=== PATIENT | female | born 1975 | race African-American/Black ===

== ENCOUNTER 2017-05-17 10:23 | Emergency (ER) | payer MEDICAID ==
[~2017-05-17] VITALS: Ht 160 cm; Wt 81.6 kg
[2017-05-17 10:31] VITALS: BP_SYST 117
[2017-05-17] MEDS ORDERED: PROCHLORPERAZINE EDISYLATE 10 MG/2 ML VIAL IM ONE (12:00)
[2017-05-17] MEDS ORDERED: DIPHENHYDRAMINE INJ 50 MG/ML VIAL IM ONE (12:00)
[2017-05-17 14:20] VITALS: BP_SYST 115
== END 2017-05-17 14:20 | disposition home or self-care (01) ==
LOC: SED 10:23
DX: R51 Headache (principal); B02.9 Zoster without complications
CPT/HCPCS: 70450; 96372; 99284; J0780; J1200

== ENCOUNTER 2018-08-17 16:22 | Emergency (ER) | payer MEDICAID ==
[~2018-08-17] VITALS: Ht 160 cm; Wt 83.5 kg
[2018-08-17 16:22] VITALS: BP_SYST 110
--- NOTE | 2018-08-17 16:22 | NUR ---
BROUGHT BACK TO BED #8 VIA WHEELCHAIR, PLACED IN BED AND TRIAGED. REPORT GIVEN TO BERNABE
--- NOTE | 2018-08-17 16:25 | NUR ---
Patient to ER bed 08 to gown for evaluation. Side rails up.
--- NOTE | 2018-08-17 16:35 | NUR ---
Dr. Davila @ bedside for examination.
--- NOTE | 2018-08-17 16:38 | NUR ---
XRAYS BEING DONE AT BEDSIDE.
--- NOTE | 2018-08-17 16:45 | NUR ---
Patient AOx4 and obeys commands. Patient stated injury to right foot that was twisted. Right foot now swollen and patient unable to bear weight. Patient stated pain level 10/10. No signs of acute distress noted.
[2018-08-17] MEDS ORDERED: IBUPROFEN 800 MG TABLET PO ONE (17:15)
[2018-08-17 17:35] VITALS: BP_SYST 110
--- NOTE | 2018-08-17 17:35 | NUR ---
Patient given written and verbal discharge instructions and verbalizes understanding. ER MD discussed with patient the results and treatment provided. Patient in stable condition. ID arm band removed. Rx of motrin given. Patient educated on pain management and to follow up with PMD. Pain Scale 5/10 Opportunity for questions provided and answered. Medication side effect fact sheet provided.
== END 2018-08-17 17:35 | disposition home or self-care (01) ==
LOC: SED 16:22
DX: S92.351A Displaced fracture of fifth metatarsal bone, right foot, initial encounter for closed fracture (principal); W18.40XA Slipping, tripping and stumbling without falling, unspecified, initial encounter; Y93.01 Activity, walking, marching and hiking; Y92.89 Other specified places as the place of occurrence of the external cause; Y99.8 Other external cause status
CPT/HCPCS: 99283

== ENCOUNTER 2019-04-02 23:14 | Emergency (ER) | payer MEDICAID ==
[~2019-04-02] VITALS: Ht 165.1 cm; Wt 81.6 kg
[2019-04-02 23:17] VITALS: BP_SYST 129
--- NOTE | 2019-04-02 23:17 | NUR ---
Patient to ER bed 4 to gown for evaluation. Side rails up. Report given to Flor LACY by Mary LACY.
--- NOTE | 2019-04-02 23:25 | NUR ---
ER at bedside examining patient.
[2019-04-02] MEDS ORDERED: ACETAMINOPHEN 325 MG TABLET PO ONE (23:30)
[2019-04-03 01:06] VITALS: BP_SYST 122
--- NOTE | 2019-04-03 01:06 | NUR ---
Patient given written and verbal discharge instructions and verbalizes understanding. ER MD discussed with patient the results and treatment provided. Patient in stable condition. ID arm band removed. Rx of Angie Mensah and Sonia given. Patient educated on pain management and to follow up with PMD. Pain Scale 0/10. Opportunity for questions provided and answered. Medication side effect fact sheet provided.
== END 2019-04-03 01:06 | disposition home or self-care (01) ==
LOC: SED 23:14
DX: B34.9 Viral infection, unspecified (principal); R50.9 Fever, unspecified
CPT/HCPCS: 36415; 86710; 99283

== ENCOUNTER 2019-04-18 22:06 | Emergency (ER) | payer MEDICAID ==
[~2019-04-18] VITALS: Ht 160 cm; Wt 81.6 kg
[2019-04-18 22:57] VITALS: BP_SYST 108
--- NOTE | 2019-04-18 23:15 | NUR ---
Pt ambulatory to bed 3 for evaluation
--- NOTE | 2019-04-18 23:15 | NUR ---
Pt c/o fever, cough, chills, body aches x 2 weeks with temp of "110" since 2144 today.
--- NOTE | 2019-04-18 23:30 | NUR ---
Temp recheck 97.9 temporal.
--- NOTE | 2019-04-19 00:14 | NUR ---
Dr. Gastelum at bedside.
[2019-04-19 00:38] VITALS: BP_SYST 112
--- NOTE | 2019-04-19 00:38 | NUR ---
Patient given written and verbal discharge instructions and verbalizes understanding. ER MD discussed with patient the results and treatment provided. Patient in stable condition. ID arm band removed. Rx of Tamiflu, Motrin, Promethazine DM given. Patient educated on pain management and to follow up with PMD. Pain Scale 2/10. Opportunity for questions provided and answered. Medication side effect fact sheet provided.
== END 2019-04-19 00:38 | disposition home or self-care (01) ==
LOC: SED 22:06
DX: J10.1 Influenza due to other identified influenza virus with other respiratory manifestations (principal)
CPT/HCPCS: 36415; 86710; 99283

== ENCOUNTER 2019-05-22 20:57 | Emergency (ER) | payer MEDICAID ==
[~2019-05-22] VITALS: Ht 162.6 cm; Wt 79.4 kg
[2019-05-22 21:00] VITALS: BP_SYST 103
--- NOTE | 2019-05-22 21:00 | NUR ---
Patient triaged and placed in waiting room. VSS and patient appears in no acute distress at this time. Accompanied by DAUGTHER, awaiting available bed, and MD notified of need for MSE.
--- NOTE | 2019-05-22 23:07 | NUR ---
Patient to ER bed 8 to gown for evaluation. Side rails up. Report given to BRANDEN LACY.
--- NOTE | 2019-05-22 23:11 | NUR ---
Patient complains of cough and was seen by her PCP and was prescribed Tamiflu. Pt states her cough is still present and is now complaining of pain from her left shoulder radiating to left neck. Pt states she has been feeling nauseous and vomited numerous times. Pt denies diarrhea. Per patient she has "chills." No other injuries/complaints per patient or noted.
[2019-05-22] MEDS ORDERED: KETOROLAC TROMETHAMINE 30 MG VIAL IVP ONE (23:30)
[2019-05-22] MEDS ORDERED: NACL 0.9% 1,000 ML IV ONE (23:30)
[2019-05-22] MEDS ORDERED: ONDANSETRON HCL 4 MG/2 ML VIAL IVP ONE (23:30)
--- NOTE | 2019-05-23 | NUR ---
ER at bedside examining patient.
[2019-05-23 00:35] VITALS: BP_SYST 113
--- NOTE | 2019-05-23 00:35 | NUR ---
Patient given written and verbal discharge instructions and verbalizes understanding. ER MD discussed with patient the results and treatment provided. Patient in stable condition. ID arm band removed. IV catheter removed intact and dressing applied, no active bleeding. Rx of Motrin, Zofran, prednisone, cipro given. Patient educated on pain management and to follow up with PMD. Pain Scale 0/10. Opportunity for questions provided and answered. Medication side effect fact sheet provided.
== END 2019-05-23 00:35 | disposition home or self-care (01) ==
LOC: SED 20:57
DX: N39.0 Urinary tract infection, site not specified (principal); R05 Cough; R11.2 Nausea with vomiting, unspecified
CPT/HCPCS: 96361; 96374; 96375; 99283; J1885; J2405; J7030

== ENCOUNTER 2019-07-08 12:20 | Inpatient (IN) | payer MEDICAID ==
[~2019-07-08] VITALS: Ht 162.6 cm; Wt 75.7 kg
--- NOTE | 2019-07-08 12:20 | NUR ---
Placed in room 3. Placed on retail account executive, blood pressure machine and pulse oximeter. To gown for exam. Side rails up. Report given to BAMBI Coleman.
[2019-07-08 12:21] VITALS: BP_SYST 114
--- NOTE | 2019-07-08 12:21 | NUR ---
Patient presented to ER C/O abdominal pain. Patient A&Ox4, arrived ALS, afebrile, skin pink & warm, pain 8/10, denies N/V/D, tachycardia, patient placed on teletypesetter monitor and pulse-ox monitor upon arrival. Patient states abdominal pain started yesterday, rectal pain started today after bowel movement. Patient states she had a hospital admission in May 2019, diagnosed with lymphoma & HIV positive with chemo treatment initiated x1 week ago.
--- NOTE | 2019-07-08 12:25 | NUR ---
ALEKSANDAR Bertrand at bedside examining patient.
--- NOTE | 2019-07-08 12:35 | NUR ---
# 20 gauge angiocath placed to RIGHT ARM . Use of asceptic technique. Opsite placed over site. Blood return noted. Blood for lab drawn from site. Flushed with 10 cc of normal saline. No evidence of infiltration noted. Patient tolerated well.
[2019-07-08] MEDS ORDERED: MORPHINE 4 MG/ML INJ. SYRINGE IVP ONE (12:45)
[2019-07-08 13:12] LABS: MEAN CORPUSCULAR HEMOGLOBIN 31 pg (27-31); MEAN CORPUSCULAR HGB CONC 33 % (32-36); MEAN CORPUSCULAR VOLUME 93 fL (79.0-98.0); PLATELET COUNT (AUTO) 174 K/uL (130-430); RED BLOOD CELL COUNT(AUTO) 2.08 MIL/uL (4.2-6.2); RED CELL DISTRIBUTION WIDTH 19.9 % (9.0-15.0)
[2019-07-08 13:24] LABS: CALCIUM 8.5 mg/dL (8.4-11.0); CREATININE 1.03 mg/dL (0.55-1.30); POTASSIUM 3.6 mmol/L (3.5-5.1)
[2019-07-08 13:29] LABS: BILIRUBIN,URINE 1+ (NEGATIVE); BLOOD, URINE NEGATIVE (NEGATIVE); CLARITY/URINE CLEAR (CLEAR); COLOR,URINE YELLOW (YELLOW); GLUCOSE,URINE NEGATIVE (NEGATIVE); KETONES,URINE NEGATIVE (NEGATIVE); LEUKOCYTE ESTERASE ,URINE TRACE (NEGATIVE); NITRITE, URINE NEGATIVE (NEGATIVE); PROTEIN URINE TRACE (NEGATIVE)
--- NOTE | 2019-07-08 13:30 | NUR ---
Update given to of patient in waiting room
[2019-07-08 13:41] LABS: ALBUMIN 2.5 g/dL (3.4-4.8); TOTAL BILIRUBIN 0.4 mg/dL (0.0-1.0)
[2019-07-08 13:46] LABS: HEMOGLOBIN 6.5 g/dL (12.0-16.0); WHITE BLOOD COUNT (AUTO) 0.4 K/uL (4.8-10.8)
[2019-07-08 13:47] LABS: HEMATOCRIT 19.4 % (36-48)
[2019-07-08 13:52] LABS: BARBITURATE, URINE NEGATIVE (NEG <=200); BENZODIAZEPINE, URINE POSITIVE (NEG <=150); CANNABINOID, URINE NEGATIVE (NEG <=50); COCAINE, URINE NEGATIVE (NEG <=150); METHAMPHETAMINES SCREEN,URINE NEGATIVE (NEG <=500); OPIATE, URINE NEGATIVE (NEG <=100); PHENCYCLIDINE SCREEN,URINE NEGATIVE (NEG <=25); UR TRICYCLIC ANTIDEPRESSANTS NEGATIVE (NEG <=300); URINE AMPHETAMINE NEGATIVE (NEG <=500); URINE METHADONE NEGATIVE (NEG <=200); URINE OXYCODONE SCREEN NEGATIVE (NEG <=100); URINE PROPOXYPHENE SCREEN NEGATIVE (NEG <=300)
[2019-07-08] MEDS ORDERED: PIPERACILLIN/TAZO 3.375 GM in NS 50 ML IV ONE (14:00)
[2019-07-08] MEDS ORDERED: NACL 0.9% 1,000 ML IV ONE (14:00)
[2019-07-08 14:06] LABS: BACTERIA,URINE MODERATE /HPF (None Seen); RBC,URINE 0-3 /HPF (0-3)
[2019-07-08 14:08] LABS: INR 1.1 (0.8-1.2); PROTHROMBIN TIME 11.2 SECS (9.5-12.5)
[2019-07-08] MEDS ORDERED: PIPERACILLIN/TAZOBACTAM 3.375 GM/VIAL (ZOSYN) IV ONE (14:20)
[2019-07-08] MEDS ORDERED: SULF1TAB48 PO (14:43)
[2019-07-08] MEDS ORDERED: ALLO300T2 PO (14:43)
[2019-07-08] MEDS ORDERED: FLUC200T PO (14:43)
--- NOTE | 2019-07-08 14:44 | NUR ---
Medication reconciliation completed with information provided by PATIENT. Any prior medication reconciliation on file was reviewed and corrected.
[2019-07-08 14:45] LABS: BAND % (MANUAL) 2 % (0-6); BASOPHILS % (MANUAL) 0 % (0-2); EOSINOPHILS % (MANUAL) 4 % (0-7); LYMPHOCYTES % (MANUAL) 18 % (20-46); MONOCYTES % (MANUAL) 12 % (0-11)
[2019-07-08] MEDS ORDERED: IOHEXOL 350 mgI/mL, 150 ML INFUS..BTL IV ONE (14:49)
--- NOTE | 2019-07-08 15:35 | NUR ---
No RN available to assume care on Telemetry. supervisor [employer] notified.
--- NOTE | 2019-07-08 15:40 | NUR ---
Patient moved to ER room 8.
--- NOTE | 2019-07-08 16:01 | NUR ---
Patient will be admitted to care of. Dr. Whaley. Admitted to TELE unit. Will go to room 109C. Belongings list completed. Complete and up to date summary report printed. SBAR report to be given at bedside with opportunity for questions. Transfer to TELE via ACLS protocol. Licensed nurse present. IV present no signs or symptoms of infiltration.
[2019-07-08] MEDS ORDERED: KCL 20 mEq in D5/0.45NS 1000mL 1,000 ML IV ONE (16:15)
--- NOTE | 2019-07-08 16:45 | NUR ---
Patient came in from ER via gurney, she is stable, alert and oriented times 4. She ambulated to the bathroom without any issues. She is trembling as she feels very cold. She has two 20g IV one on each arm, left and right. Patient neurological status is good. She answered all of the admission questions without a problem. She states she initially came in because she was constipated and had excruciating pain in her anal area. Her vitals were stable, she has ST with ST elevation. She shows no signs of distress at this time. She is in need of a blood transfusion at this time, the bank has not assigned her blood, her last HGB in the ER was 6.5. I will follow-up with the lab. Her ABO test is still pending at this time. I paged for pain meds, he stated that he would be arriving in a few minutes. Patient is in bed, bed is low, locked, 2 side rails are up and call light is within reach. Rohan LACY
[2019-07-08 16:54] VITALS: BP_SYST 99
--- NOTE | 2019-07-08 18:29 | NUR ---
assessed the patient and recommended a suppository and pain medications. Rohan
--- NOTE | 2019-07-08 18:34 | NUR ---
Called the blood bank to ask if the blood would be ready anytime soon, she states about 20 more minutes. I will call to follow-up in 20 mins, I will endorse it to the overnight babysitter nurse as the shift ends in 27 mins. Rohan LACY
[2019-07-08] MEDS ORDERED: ALLOPURINOL 300 MG TABLET (ZYLOPRIM) PO ONE (18:45)
[2019-07-08] MEDS ORDERED: FLUCONAZOLE 200 MG TABLET (DIFLUCAN) PO ONE (18:45)
--- NOTE | 2019-07-08 19:08 | NUR ---
BT INITIATION: Consent signed per Patient agreeing to administration of blood. Blood has been type and crossmatched. Blood sent from blood bank. Information on unit of blood checked against patient wristband at bedside by two nurses. All information matches. Patient or responsible republican informed of potential complications associated with blood transfusion. Informed of possible transfusion reaction symptoms. Aware of need to notify nurse at once of itching, shortness of breath, flushing, feeling of impending doom, or other symptoms not previously present. Vital signs taken within 5 minutes prior to initiation of transfusion. RN will remain with patient for first 15 minutes of transfusion at which time vital signs will be re-assessed. Rohan LACY
--- NOTE | 2019-07-08 19:23 | NUR ---
15 after blood transfusion assessment : Patient feels fine, no distress noted. Her vitals signs are: BP 110/59 ,P112, RR 20, TEMP 97.7, OX 100%. Patient is stable, will be endorsed to mini shifter nurse. Rohan LACY
[2019-07-08] MEDS ORDERED: FILGRASTIM Non-Formulary 0.48 MG/VIAL SUBCUT SCH (19:30)
[2019-07-08] MEDS ORDERED: TBO-FILGRASTIM 480 MCG/0.8 ML SYRINGE SUBCUT ONE (19:45)
--- NOTE | 2019-07-08 19:45 | NUR ---
PM SHIFT ASSESSMENT Received patient lying in bed, aox4, vital signs stable, on room air, blood transfusion infusing to left ac iv line, patient complaining of pain to buttock area, will medicate shortly, plan of care discussed with patient, oriented to use call light for nurse assistance, call light within reach, patient verbalized understanding to teaching safety and reverse isolation precautions in place, will continue to monitor.
[2019-07-08] MEDS: KCL 20 mEq in D5/0.45NS 1000mL 1,000 ML IV SCH (19:55)
[2019-07-08] MEDS: HYDROmorphone 1 MG INJ. 1 MG/ML AMPUL IVP PRN (19:59)
[2019-07-08 20:00] VITALS: BP_SYST 116
[2019-07-08] MEDS: PIPERACILLIN/TAZO 3.375 GM in NS 50 ML IV SCH (20:10)
--- NOTE | 2019-07-08 21:08 | NUR ---
CONSULT FOR DR. MUHAMMAD: Addendum: 07/08/19 at 2301 by Jessica Anders ID/ DR. JADE S TOLD ID THAT HE ALREADY SPOKE WITH DR. SABINA JADE CAME TO OUR NURSES STATION HE HAD CALLED FROM [facility].
--- NOTE | 2019-07-08 21:13 | NUR ---
MED PASS Patient was given dilaudid 1 mg IVP for pain management,educated on use and side effect of medication, patient verbalized understanding, due medications also administered, started IVF with K per md order to IV line on right ac, intact and patent, no signs of infiltration noted.
--- NOTE | 2019-07-08 22:20 | NUR ---
BLOOD TRANSFUSION First unit of blood completed, patient had no reaction, tolerated well, vitals stable.
--- NOTE | 2019-07-08 22:58 | NUR ---
DR. JADE ALREADY SPOKE WITH DR. MUHAMMAD REGARDING THIS CONSULT:
[2019-07-08] MEDS: PHENYLEPH/MINERAL OIL/PETROLAT 45 GM OINT.APPL TP PRN (23:04)
--- NOTE | 2019-07-08 23:10 | NUR ---
BLOOD TRANSFUSION Second unit of blood transfusing, patient had no reaction the first 15 minutes of transfusion, vitals stable. Patient resting quietly in bed, denies any pain or discomfort at this time.
--- NOTE | 2019-07-08 23:12 | NUR ---
CONSULT: CONSULT CALLED FOR I SPOKE WITH GABINO DWYER REASON FOR CONSULT: NEUTROPENIA PANCYTOPENIA AND REVERSE ISOLATION REQUESTING CONSULT: DR. JADE PRODUCT SUPPORT TECHNICIAN PHONE NUMBER: [phone]
--- NOTE | 2019-07-09 00:30 | NUR ---
ROUNDS Patient sleeping, breathing is even and unlabored, vital signs stable, blood transfusion and IVF continues to infuse, call light remains within reach, will monitor.
[2019-07-09 00:59] VITALS: BP_SYST 120
--- NOTE | 2019-07-09 01:30 | NUR ---
BLOOD TRANSFUSION END SECOND UNIT OF BLOOD TRANSFUSED, PATIENT TOLERATED WELL, VITALS STABLE. IV LINE REMAINS INTACT AND PATENT.
[2019-07-09] MEDS: PIPERACILLIN/TAZO 3.375 GM in NS 50 ML IV SCH ×4 (01:45→20:14)
--- NOTE | 2019-07-09 02:30 | NUR ---
ROUNDS Patient awke, due antibiotics administered, assisted patient to bathroom, steady gait noted.
--- NOTE | 2019-07-09 04:05 | NUR ---
ROUNDS Patient sleeping, breathing is even and unlabored, IVF continues to infuse, safety and fall precautions in place, call light within reach, will monitor.
[2019-07-09] MEDS: PHENYLEPH/MINERAL OIL/PETROLAT 45 GM OINT.APPL TP PRN ×2 (05:47→14:38)
--- NOTE | 2019-07-09 05:56 | NUR ---
ROUNDS Patient awake, pain level tolerable at this time, hemorrhoid ointment applied to anal area, patient tolerated well, needs attended through out the shift, fall and reverse isolation precautions maintained, call light remains within reach, will monitor until report given to am nurse.
[2019-07-09 06:44] LABS: CALCIUM 8.4 mg/dL (8.4-11.0); PHOSPHORUS 3.3 mg/dL (2.7-4.5); POTASSIUM 3.5 mmol/L (3.5-5.1)
[2019-07-09 06:49] LABS: TOTAL IRON BIND. CAPACITY 186 ug/dL (250-450)
--- NOTE | 2019-07-09 08:00 | NUR ---
Patient seemed stable this morning, no signs of distress. Report received by PM nurse. Bed is low, locked, 2 side rails up and call light is within reach. Rohan LACY
[2019-07-09] MEDS: KCL 20 mEq in D5/0.45NS 1000mL 1,000 ML IV SCH ×2 (08:34→20:15)
[2019-07-09 08:36] LABS: BASOPHILS % (AUTO) 3.6 % (0.0-2.0); EOSINOPHILS # (AUTO) 0.1 K/uL (0.0-0.4); EOSINOPHILS % (AUTO) 8.5 % (0.0-4.0); HEMATOCRIT 25.8 % (36-48); HEMOGLOBIN 8.6 g/dL (12.0-16.0); LYMPHOCYTES # (AUTO) 0.3 K/uL (1.0-5.5); MEAN CORPUSCULAR HEMOGLOBIN 31 pg (27-31); MEAN CORPUSCULAR HGB CONC 34 % (32-36); MEAN CORPUSCULAR VOLUME 93 fL (79.0-98.0); MONOCYTES # (AUTO) 0.1 K/uL (0.0-1.0); MONOCYTES % (AUTO) 23.8 % (1.7-9.3); NEUTROPHILS % (AUTO) 12.8 % (40.0-70.0); PLATELET COUNT (AUTO) 148 K/uL (130-430); RED BLOOD CELL COUNT(AUTO) 2.78 MIL/uL (4.2-6.2); RED CELL DISTRIBUTION WIDTH 17.4 % (9.0-15.0)
[2019-07-09] MEDS: HYDROmorphone 1 MG INJ. 1 MG/ML AMPUL IVP PRN ×3 (08:36→20:48)
[2019-07-09] MEDS: ALLOPURINOL 300 MG TABLET (ZYLOPRIM) PO SCH (08:45)
[2019-07-09] MEDS: FLUCONAZOLE 200 MG TABLET (DIFLUCAN) PO SCH (08:45)
[2019-07-09 08:53] LABS: WHITE BLOOD COUNT (AUTO) 0.6 K/uL (4.8-10.8)
[2019-07-09 08:54] LABS: NEUTROPHILS # (AUTO) 0.1 K/uL (1.8-7.7)
--- NOTE | 2019-07-09 08:56 | NUR ---
Received an abnormal from lab of WBC 0.6 and Abs neurtophils 0.1, called to report. Waiting for call back. Rohan LACY
[2019-07-09 08:57] LABS: LYMPHOCYTES % (AUTO) 51.3 % (20.5-51.5)
[2019-07-09] MEDS ORDERED: SULFAMETHOXAZOLE/TRIMETHOPR DS 1 TABLET PO SCH (09:00)
[2019-07-09 09:03] LABS: RETICULOCYTE COUNT 5.6 % (0.5-1.5)
--- NOTE | 2019-07-09 10:08 | NUR ---
Nutrition Update Craig Scale 18 noted. Pt admitted for neutropenia. Diet: regular BMI: 28.7 kg/m2 RD to follow per nutrition care standards.
--- NOTE | 2019-07-09 10:33 | NUR ---
Patient took her PO meds well, she also had her IV meds and pain meds. Bed is low, locked, 2 side rails up and call light is within reach. Rohan LACY
[2019-07-09 12:16] LABS: BILIRUBIN,URINE NEGATIVE (NEGATIVE); BLOOD, URINE NEGATIVE (NEGATIVE); CLARITY/URINE CLEAR (CLEAR); COLOR,URINE YELLOW (YELLOW); GLUCOSE,URINE NEGATIVE (NEGATIVE); KETONES,URINE NEGATIVE (NEGATIVE); LEUKOCYTE ESTERASE ,URINE NEGATIVE (NEGATIVE); NITRITE, URINE NEGATIVE (NEGATIVE); PH,URINE 5.5 (5.0-8.0); PROTEIN URINE NEGATIVE (NEGATIVE); UROBILINOGEN,URINE 0.2 (0.2-1.0)
[2019-07-09 12:31] VITALS: BP_SYST 113
--- NOTE | 2019-07-09 12:45 | NUR ---
Patient was encouraged to have her meals sitting in bed. She said she will try her best to eat most of her meal. Bed is low, locked, 2 side rails up and call light is within reach. Rohan LACY
--- NOTE | 2019-07-09 14:00 | NUR ---
Patient was moved to a negative pressure room for suspicion of TB. Waiting to r/o or confirm via blood and sputum orders.
--- NOTE | 2019-07-09 14:12 | NUR ---
Dietitian Recommendations * Recommend regular diet w/ Ensure Enlive TID (ONS provides 1050 kcal/day, 60 gm protein/day) AKSHAT RENEE Please refer to Nutrition Assessment for details. Addendum: 07/09/19 at [address] Amended: Links added.
--- NOTE | 2019-07-09 15:09 | NUR ---
Applied hemorrhoid cream and gave pain meds and IV to the patient. Bed is low, locked, 2 side rails up and call light is within reach. Rohan LACY
--- NOTE | 2019-07-09 17:00 | NUR ---
Patient is sleeping. bed is low, locked, 2 side rails up and call light within reach. Rohan LACY
[2019-07-09 17:03] VITALS: BP_SYST 114
--- NOTE | 2019-07-09 19:03 | NUR ---
Closing notes: Patient is in negative pressure isolation due to possible TB. She is sleeping at the moment. Report will be given to the shift manager nurse. bed is low, locked, 2 side rails up and call light within reach. Rohan LACY
--- NOTE | 2019-07-09 19:30 | NUR ---
Opening notes Received report. Patient is resting in bed. No signs of distress noted. Breathing even and unlabored. IV to RAC patent and intact, infusing fluids. LAC IV patent and intact, saline locked. Patient complains of pain, will administer pain medications. Patient ate very little dinner, offered patient snacks. Patient stated she is not hungry. No other needs at this time. Call light with the patient. Safety and airborne precautions in place.
[2019-07-09] MEDS: TBO-FILGRASTIM 480 MCG/0.8 ML SYRINGE SUBCUT SCH (19:39)
[2019-07-09 20:00] VITALS: BP_SYST 117
--- NOTE | 2019-07-09 20:45 | NUR ---
Medications Patient ambulated to bathroom without any assistance, steady gait noted. PRN pain medication given. Educated the action and side effects of medications. Patient verbalized understanding and tolerated well. No other needs at this time. Call light with the patient. Safety and airborne precautions in place.
--- NOTE | 2019-07-09 22:43 | NUR ---
RN Rounds Patient is resting in bed, talking on phone. No signs of distress noted. Breathing even and unlabored. IVF infusing well. No needs. Call light with the patient. Safety and airborne precautions in place.
[2019-07-09] MEDS ORDERED: ACETAMINOPHEN 325 MG TABLET PO PRN (23:15)
[2019-07-10 00:29] VITALS: BP_SYST 104
--- NOTE | 2019-07-10 00:32 | NUR ---
RN rounds Patient resting in bed, watching TV. No signs of distress noted. Breathing even and unlabored. IVF infusing well. Provided patient with apple juice and jello. No other needs. Call light with the patient. Safety and airborne precautions in place.
[2019-07-10] MEDS: PIPERACILLIN/TAZO 3.375 GM in NS 50 ML IV SCH ×4 (02:08→19:56)
[2019-07-10 02:30] VITALS: BP_SYST 105
[2019-07-10] MEDS: HYDROmorphone 1 MG INJ. 1 MG/ML AMPUL IVP PRN ×4 (02:32→20:15)
--- NOTE | 2019-07-10 02:32 | NUR ---
Pain Patient complain of pain. PRN pain medication given. Educated the action and side effects of medication. Patient verbalized understanding and tolerated well. No other needs. call light with the patient. Safety and airborne precautions in place.
--- NOTE | 2019-07-10 04:30 | NUR ---
RN Rounds Patient is resting in bed, no signs of distress noted. Breathing even and unlabored. No needs at this time. Call light with the patient. Safety and airborne precautions in place.
--- NOTE | 2019-07-10 06:25 | NUR ---
Closing notes Patient is resting in bed. No signs of distress noted. Breathing even and unlabored. No complaints of pain. IVF infusing well. All needs met throughout the shift. Call light with the patient. Safety and airborne precautions in place. Will endorse care to day shift RN.
--- NOTE | 2019-07-10 07:52 | NUR ---
Opening Note received bedside SBAR report from finance lead RN, patient resting in bed, respirations even and unlabored on room air, no acute distress noted, educated patient on use of call light and asked to call for assistance, patient verbalized understanding, call light in reach, educated patient on use of bed alarm for patient safety, patient refusing bed alarm, bed in low and locked position.
[2019-07-10 08:00] VITALS: BP_SYST 104
[2019-07-10] MEDS: FLUCONAZOLE 200 MG TABLET (DIFLUCAN) PO SCH (08:54)
[2019-07-10] MEDS: ALLOPURINOL 300 MG TABLET (ZYLOPRIM) PO SCH (08:54)
[2019-07-10] MEDS: PHENYLEPH/MINERAL OIL/PETROLAT 45 GM OINT.APPL TP PRN ×2 (09:57→20:24)
[2019-07-10 10:10] LABS: EOSINOPHILS # (AUTO) 0.1 K/uL (0.0-0.4); HEMOGLOBIN 9.2 g/dL (12.0-16.0); LYMPHOCYTES # (AUTO) 0.3 K/uL (1.0-5.5); MONOCYTES # (AUTO) 0.4 K/uL (0.0-1.0)
[2019-07-10 10:21] LABS: BASOPHILS % (AUTO) 2.6 % (0.0-2.0); EOSINOPHILS % (AUTO) 11.7 % (0.0-4.0); HEMATOCRIT 27.6 % (36-48); LYMPHOCYTES % (AUTO) 34.6 % (20.5-51.5); MEAN CORPUSCULAR HEMOGLOBIN 31 pg (27-31); MEAN CORPUSCULAR HGB CONC 33 % (32-36); MEAN CORPUSCULAR VOLUME 93 fL (79.0-98.0); MONOCYTES % (AUTO) 45.8 % (1.7-9.3); PLATELET COUNT (AUTO) 275 K/uL (130-430); RED BLOOD CELL COUNT(AUTO) 2.97 MIL/uL (4.2-6.2)
--- NOTE | 2019-07-10 10:23 | NUR ---
Spoke with Physician spoke with Dr. Whaley, informed him that patients heart rate is 110-120's, informed him that patient is afebrile 97.7F, no new orders received.
[2019-07-10 10:45] LABS: WHITE BLOOD COUNT (AUTO) 0.8 K/uL (4.8-10.8)
[2019-07-10 10:46] LABS: NEUTROPHILS % (AUTO) 5.3 % (40.0-70.0)
[2019-07-10] MEDS: KCL 20 mEq in D5/0.45NS 1000mL 1,000 ML IV SCH (11:43)
--- NOTE | 2019-07-10 11:55 | NUR ---
Spoke with Physician Spoke with Dr. Warren, informed him of critical labs WBC 0.8 and absolute neutrophils 0.0, no new orders, continue current treatment.
[2019-07-10 12:18] VITALS: BP_SYST 113
--- NOTE | 2019-07-10 12:33 | NUR ---
RN Rounds patient sitting up in bed eating lunch, patient tolerating well, no acute distress noted, patient reports pain is controlled at this time.
--- NOTE | 2019-07-10 16:08 | NUR ---
RN Rounds patient resting in bed, respirations even and unlabored on room air, no acute distress noted, patient reports pain is controlled at this time.
[2019-07-10 16:39] VITALS: BP_SYST 118
[2019-07-10] MEDS: TBO-FILGRASTIM 480 MCG/0.8 ML SYRINGE SUBCUT SCH (17:26)
--- NOTE | 2019-07-10 19:15 | NUR ---
Closing Note bedside SBAR report given to receiving RN, respirations even and unlabored, patient sitting up in bed eating dinner, no acute distress noted, educated patient on use of call light and asked to call for assistance, patient verbalized understanding, call light in reach, educated patient on use of bed alarm for patient safety, patient refusing bed alarm, bed in low and locked position, care endorsed to rn shift mgr RN.
--- NOTE | 2019-07-10 19:25 | NUR ---
Opening Notes Received bed side report by negative pressure ante room. Patient in bed resting. Informed patient of clustered care to be performed due to isolation precautions. Neutropenic precautions in place as well as airborne for TB rule out. Call light is within reach with bed in low position. IV fluids infusing on the right AC 20g. Will monitor on rounds.
[2019-07-10 20:00] VITALS: BP_SYST 113
--- NOTE | 2019-07-10 22:15 | NUR ---
Tolerated medications. Narcotics education provided. Patient is ambulatory with steady gait to the bathroom. Gown changed. Patient self repositioning.
[2019-07-11] VITALS: BP_SYST 113
[2019-07-11] MEDS: KCL 20 mEq in D5/0.45NS 1000mL 1,000 ML IV SCH (01:27)
[2019-07-11] MEDS: PIPERACILLIN/TAZO 3.375 GM in NS 50 ML IV SCH ×4 (01:28→21:04)
[2019-07-11] MEDS: HYDROmorphone 1 MG INJ. 1 MG/ML AMPUL IVP PRN ×4 (01:29→23:38)
--- NOTE | 2019-07-11 06:37 | NUR ---
Closing Notes Afebrile throughout the shift. IV sites intact with no infiltration. No cough, pain or sob observed at this time. All needs have been met and will endorse care to day shift nurse.
[2019-07-11 06:53] LABS: HEMATOCRIT 26.1 % (36-48); HEMOGLOBIN 8.8 g/dL (12.0-16.0); MEAN CORPUSCULAR HEMOGLOBIN 31 pg (27-31); MEAN CORPUSCULAR HGB CONC 34 % (32-36); MEAN CORPUSCULAR VOLUME 91 fL (79.0-98.0); PLATELET COUNT (AUTO) 390 K/uL (130-430); RED BLOOD CELL COUNT(AUTO) 2.85 MIL/uL (4.2-6.2); RED CELL DISTRIBUTION WIDTH 18.9 % (9.0-15.0)
[2019-07-11 08:00] VITALS: BP_SYST 101
--- NOTE | 2019-07-11 08:00 | NUR ---
initial notes rec patient awake alert ambulating in her room. ivf infusing well . no infiltration noted. resp easy and unlabored, no sob noted. bed to the lowest position and side rails up and locked. call light within reached and knows when to call for assistance.
[2019-07-11 08:30] LABS: WHITE BLOOD COUNT (AUTO) 1.8 K/uL (4.8-10.8)
[2019-07-11] MEDS: FLUCONAZOLE 200 MG TABLET (DIFLUCAN) PO SCH (08:53)
[2019-07-11] MEDS: PHENYLEPH/MINERAL OIL/PETROLAT 45 GM OINT.APPL TP PRN (09:02)
--- NOTE | 2019-07-11 10:00 | NUR ---
rounds due meds were given and jeremiah well. no sob noted. pain med was given for c/o rectal pain.
[2019-07-11 11:02] LABS: ATYPICAL LYMPHOCYTES % 9 % (0-0); BAND % (MANUAL) 9 % (0-6); EOSINOPHILS % (MANUAL) 5 % (0-7); LYMPHOCYTES % (MANUAL) 31 % (20-46); MONOCYTES % (MANUAL) 36 % (0-11)
[2019-07-11 11:03] LABS: BASOPHILS % (MANUAL) 0 % (0-2)
[2019-07-11 11:04] LABS: METAMYELOCYTES % 2 % (0-0)
[2019-07-11] MEDS ORDERED: DOCUSATE SODIUM 100 MG CAPSULE PO ONE (11:30)
[2019-07-11] MEDS ORDERED: MILK OF MAGNESIA 30 ML UDC PO PRN (11:30)
[2019-07-11 12:00] VITALS: BP_SYST 113
[2019-07-11] MEDS: POTASSIUM CHLORIDE 10 MEQ in NACL 0.9% 1,000 ML IV SCH (14:30)
[2019-07-11] MEDS: LIDOCAINE TOPICAL OINT 5%, 35 GM TP PRN ×2 (14:31→23:37)
[2019-07-11] MEDS: ALLOPURINOL 300 MG TABLET (ZYLOPRIM) PO SCH (14:31)
--- NOTE | 2019-07-11 15:28 | NUR ---
DC Planning: LVM to pt's spouse/Jalen requesting his return call to discuss dcp to home with HH vs snf.
[2019-07-11 16:37] VITALS: BP_SYST 100
[2019-07-11] MEDS: TBO-FILGRASTIM 480 MCG/0.8 ML SYRINGE SUBCUT SCH (18:22)
--- NOTE | 2019-07-11 19:00 | NUR ---
OPENING NOTES Patient is resting, no signs of acute respiratory distress observed. IVF running, patient complains of pain at IV site. Call light within reach, bed alarm refused after patient educated on risks and benefits. Bed at lowest position. Patient is to be in reverse isolation precautions throughout shift. Will continue to monitor.
[2019-07-11 20:00] VITALS: BP_SYST 109; BP_SYST 93
[2019-07-11] MEDS: DOCUSATE SODIUM 100 MG CAPSULE PO SCH (20:26)
--- NOTE | 2019-07-11 20:30 | NUR ---
IV RE-INSERTION: Complaining of pain to IV site on both Right and Left AC. Both Discontinued with catheter intact. Restarted on Right forearm. Successful after 1 attempt. Resumed current IV antibiotics. Will observe for any signs of infiltration.
--- NOTE | 2019-07-12 00:01 | NUR ---
Patient is resting, jello and juice provided, no signs of distress observed, patient states pain is 4/10. IV site patent. Will continue to monitor.
[2019-07-12 00:33] VITALS: BP_SYST 114
[2019-07-12] MEDS: PIPERACILLIN/TAZO 3.375 GM in NS 50 ML IV SCH ×4 (01:16→20:27)
--- NOTE | 2019-07-12 02:03 | NUR ---
Patient is asleep, no signs of distress observed, Sinus rhythm, HR 80s when resting. No signs of distress observed. Will continue to monitor.
--- NOTE | 2019-07-12 04:00 | NUR ---
Patient is resting, no signs of distress observed at this time. Will continue to monitor.
--- NOTE | 2019-07-12 06:01 | NUR ---
CLOSING NOTES Patient is resting, no signs of distress observed. Patient ambulates with steady gait to go to the restroom. IV site patent, dressings c/d/i. Reverse isolation precautions kept throughout shift. Patient asks if she is able to shower and educated patient on protocol of bead worker sewing patients. Linens changed. Call light within reach, bed alarm refused throughout shift, bed at lowest position. All needs met throughout shift. Will endorse care to oncoming shift.
[2019-07-12 06:45] LABS: HEMATOCRIT 30.3 % (36-48); HEMOGLOBIN 9.8 g/dL (12.0-16.0); MEAN CORPUSCULAR HEMOGLOBIN 30 pg (27-31); MEAN CORPUSCULAR HGB CONC 32 % (32-36); MEAN CORPUSCULAR VOLUME 94 fL (79.0-98.0); PLATELET COUNT (AUTO) 541 K/uL (130-430); RED BLOOD CELL COUNT(AUTO) 3.24 MIL/uL (4.2-6.2); RED CELL DISTRIBUTION WIDTH 20.4 % (9.0-15.0); WHITE BLOOD COUNT (AUTO) 9.2 K/uL (4.8-10.8)
[2019-07-12 07:12] LABS: CALCIUM 8.2 mg/dL (8.4-11.0); CREATININE 0.88 mg/dL (0.55-1.30); POTASSIUM 3.6 mmol/L (3.5-5.1)
--- NOTE | 2019-07-12 08:00 | NUR ---
initial notes rec patient awake alert with ivf infusing well on the r forearm. no infiltration noted. remain to be on isolation. resp easy and unlabored. bed to the lowest positon and side rails up and locked. call light within reached. denies pain at this time.
[2019-07-12 08:27] VITALS: BP_SYST 97
[2019-07-12 09:00] LABS: ATYPICAL LYMPHOCYTES % 4 % (0-0); BAND % (MANUAL) 35 % (0-6); BASOPHILS % (MANUAL) 0 % (0-2); EOSINOPHILS % (MANUAL) 2 % (0-7); LYMPHOCYTES % (MANUAL) 14 % (20-46); METAMYELOCYTES % 8 % (0-0); MONOCYTES % (MANUAL) 15 % (0-11)
[2019-07-12 09:01] LABS: MYELOCYTES % 3 % (0-0)
[2019-07-12] MEDS: POTASSIUM CHLORIDE 10 MEQ in NACL 0.9% 1,000 ML IV SCH ×3 (09:30→22:54)
[2019-07-12] MEDS: DOCUSATE SODIUM 100 MG CAPSULE PO SCH ×2 (09:41→20:27)
[2019-07-12] MEDS: ALLOPURINOL 300 MG TABLET (ZYLOPRIM) PO SCH (09:41)
[2019-07-12] MEDS: FLUCONAZOLE 200 MG TABLET (DIFLUCAN) PO SCH (09:41)
[2019-07-12] MEDS: HYDROmorphone 1 MG INJ. 1 MG/ML AMPUL IVP PRN ×2 (09:52→16:33)
--- NOTE | 2019-07-12 10:00 | NUR ---
rounds due meds were given and jeremiah well. call light within reached . no sob noted.
--- NOTE | 2019-07-12 11:51 | NUR ---
rounds spoke with dr salomon and relayed results of 3 afb/s from [facility] and with orders.
--- NOTE | 2019-07-12 14:25 | NUR ---
Nutrition F/U RD reviewed pt's current EMR record including diet Hx, physician notes, nursing notes, pertinent labs/meds/procedures, care trends, and care activity. Admitting Diagnosis: Neutropenia Medical History Comment: PMH: lymphoma, asthma, HIV per physician notes Pt also found w/ severe leukocytosis, severe anemia, perirectal abscess per physician notes Subjective Information: RD did not enter pt room as pt is on airborne isolation precautions to r/o TB. Pt was noted to have poor appetite. PO intake is at 50%avg, Ensure Enlive TID is given with each meal to help meet nutrition needs and provides 350kcal and 20gPro per serving. Per RN report, pt is consuming apple juice and jello. IVF is provided and labs reflect pt w/ adequate hydration. Current Diet Order/Nutrition Support: Regular w/ Ensure Enlive TID x3 days Current PO intake: 50% avg x 4 meals Pertinent Medications: Reviewed Pertinent Labs: Na 128 L, BG 75L, ALB 2.5 L, WBC 9.2 L, H/H 9.8/30.3 L Skin Integrity Comment: Skin tear x 2 to the left and right medial buttocks Estimated Energy Expenditure (kcals/day) 3643-0138 kcal/day (30-35 kcak/kg Adj IBW for CA) Estimated Protein Required (g/day) 72-90 gm/day (1.2-1.5 gm/kg Adj IBW for CA) Estimated Fluid Required (l/day) 1.8-2.1 L/day (1 ml/kcal/day for maintenance) Problem/Etiology/Signs/Symptoms Suboptimal nutritional intakes related to lack of appetite as evidenced by poor PO intakes. Expected Outcomes/Goals - Monitor appetite and PO intakes w/ goal of pt meeting at least 75% of estimated nutritional needs, labs trending WNL, normal GI function, and skin integrity/wt maintenance Dietitian Recommendations * Continue Regular diet w/ Ensure Enlive TID * Encourage PO intake as tolerated Follow Up High Risk: F/U in 2-3days
--- NOTE | 2019-07-12 14:27 | NUR ---
Dietitian Recommendations * Continue Regular diet w/ Ensure Enlive TID * Encourage PO intake as tolerated Please see Nutrition F/U for further details. LT, RD
[2019-07-12 15:42] VITALS: BP_SYST 100
[2019-07-12] MEDS: TBO-FILGRASTIM 480 MCG/0.8 ML SYRINGE SUBCUT SCH (16:33)
--- NOTE | 2019-07-12 18:30 | NUR ---
closingnotes spoke with dr abrams re dr salomon's order. stated will let dr raymond know in the morning. n o osb noted. bed to the lowest position and side rails up and locked. call light within reached.
--- NOTE | 2019-07-12 19:05 | NUR ---
OPENING NOTES Patient is resting, no signs of acute respiratory distress observed. IVF running, dressings c/d/i. Call light within reach, bed alarm refused after patient educated on risks and benefits. Bed at lowest position. Isolation has been discontinued since morning. Will continue to monitor.
[2019-07-12 20:00] VITALS: BP_SYST 109
--- NOTE | 2019-07-12 21:00 | NUR ---
Patient asks for tissues. Tissues provided and repositioning. All needs met at this time. will continue to monitor.
--- NOTE | 2019-07-12 23:11 | NUR ---
Patient is emotional and crying. Stayed with patient to listen and provide jello and snacks. Patient has calmed down. Will continue to monitor.
[2019-07-12 23:20] VITALS: BP_SYST 108
--- NOTE | 2019-07-13 01:11 | NUR ---
Patient complains of air blowing on face. Temperature has been adjusted and blankets provided. Will continue to monitor.
[2019-07-13] MEDS: HYDROmorphone 1 MG INJ. 1 MG/ML AMPUL IVP PRN ×2 (02:05→09:30)
[2019-07-13] MEDS: PIPERACILLIN/TAZO 3.375 GM in NS 50 ML IV SCH ×2 (02:05→09:30)
[2019-07-13] MEDS: LIDOCAINE TOPICAL OINT 5%, 35 GM TP PRN ×2 (02:17→06:22)
--- NOTE | 2019-07-13 03:01 | NUR ---
Patient is asleep, eyes closed. Rise and fall of chest noted. Will continue to monitor.
--- NOTE | 2019-07-13 05:07 | NUR ---
Patient is resting, no signs of distress observed. Will continue to monitor.
--- NOTE | 2019-07-13 05:30 | NUR ---
Provided patient with paper as patient is overwhelmed with the changes that occurred and would like to write down the things she would like to ask or relay to the doctor or nurse case manager. Patient is resting, no signs of distress observed.
--- NOTE | 2019-07-13 06:12 | NUR ---
CLOSING NOTES Patient is resting, no signs of distress observed. IV site patent, IVF running, dressings c/d/i. Call light within reach, bed alarm refused throughout shift. Bed at lowest position. All needs met throughout shift. will endorse care to oncoming shift.
[2019-07-13] MEDS: PHENYLEPH/MINERAL OIL/PETROLAT 45 GM OINT.APPL TP PRN (06:23)
--- NOTE | 2019-07-13 07:08 | NUR ---
Nutrition Update Craig Scale 18 noted. Pt admitted for Neutropenia Diet: Regular BMI: 28.7 kg/m2 RD to follow per nutrition care standards.
[2019-07-13 07:14] LABS: CREATININE 0.83 mg/dL (0.55-1.30); POTASSIUM 3.7 mmol/L (3.5-5.1)
[2019-07-13 07:40] LABS: HEMATOCRIT 26.8 % (36-48); HEMOGLOBIN 8.6 g/dL (12.0-16.0); MEAN CORPUSCULAR HEMOGLOBIN 30 pg (27-31); MEAN CORPUSCULAR HGB CONC 32 % (32-36); MEAN CORPUSCULAR VOLUME 93 fL (79.0-98.0); PLATELET COUNT (AUTO) 570 K/uL (130-430); RED BLOOD CELL COUNT(AUTO) 2.88 MIL/uL (4.2-6.2); RED CELL DISTRIBUTION WIDTH 19.3 % (9.0-15.0)
[2019-07-13 07:45] VITALS: BP_SYST 117
[2019-07-13 07:45] LABS: WHITE BLOOD COUNT (AUTO) 44.8 K/uL (4.8-10.8)
--- NOTE | 2019-07-13 07:45 | NUR ---
INITIAL ROUNDS Received pt AAOx4, no s/s resp distress, no coughing noted, no c/o pain or discomfort. Plan of care for the day reviewed with pt-pt verbalized her understanding. IVF infusing well to RFA at ordered rate with no s/s infiltration to site. Pain management, skin and safety discussed-teach back done, call light within reach.
[2019-07-13 08:38] LABS: ATYPICAL LYMPHOCYTES % 0 % (0-0); BAND % (MANUAL) 25 % (0-6); BASOPHILS % (MANUAL) 0 % (0-2); EOSINOPHILS % (MANUAL) 0 % (0-7); LYMPHOCYTES % (MANUAL) 5 % (20-46); METAMYELOCYTES % 7 % (0-0); MONOCYTES % (MANUAL) 1 % (0-11)
[2019-07-13] MEDS: DOCUSATE SODIUM 100 MG CAPSULE PO SCH (09:30)
[2019-07-13] MEDS: FLUCONAZOLE 200 MG TABLET (DIFLUCAN) PO SCH (09:30)
[2019-07-13] MEDS: ALLOPURINOL 300 MG TABLET (ZYLOPRIM) PO SCH (09:37)
[2019-07-13 11:37] VITALS: BP_SYST 101
--- NOTE | 2019-07-13 12:08 | NUR ---
ROUNDS/MD Pt sitting up in bed with no s/s resp distress, no c/o pain or discomfort. Pt seen by Dr. Briana vega-lucas to D/C pt home with antibiotics. Needs met, call light within reach.
[2019-07-13 13:35] VITALS: BP_SYST 101
--- NOTE | 2019-07-13 15:30 | NUR ---
PATIENT DISCHARGED HOME Patient given medication reconciliation form and D/C instructions. Exit Care explained & provided. Patient verbalized her understanding. MD discussed with patient the results and treatment provided. Ambulatory with steady gait for discharge to home. Patient in stable condition, ID band removed. IV catheter removed, intact and dressing applied, no active bleeding. Rx of Flagyl, Doxycycline, Dilaudid & Annusol. given. Patient educated on pain management. All belongings sent with patient. Patient left floor via wheelchair to private vehicle in no distress.
[2019-07-16 11:21] LABS: COCCIDIOIDES AB COMPLEMENT FIX <1:2 (NEGATIVE)
== END 2019-07-13 15:30 | disposition home or self-care (01) | DRG 660 ==
LOC: SED 12:20 → STU 16:07
PROVIDERS: ADMIT Family Medicine; ATTEND Family Medicine
PROC: 30233N1 Transfusion of Nonautologous Red Blood Cells into Peripheral Vein, Percutaneous Approach (ICD-10-PCS; principal; 2019-07-08)
DX: D70.3 Neutropenia due to infection (principal); J15.6 Pneumonia due to other Gram-negative bacteria; E87.2 Acidosis; C85.90 Non-Hodgkin lymphoma, unspecified, unspecified site; E44.0 Moderate protein-calorie malnutrition; D64.81 Anemia due to antineoplastic chemotherapy; K61.1 Rectal abscess; J45.909 Unspecified asthma, uncomplicated; K59.00 Constipation, unspecified; T45.1X5A Adverse effect of antineoplastic and immunosuppressive drugs, initial encounter; K64.9 Unspecified hemorrhoids; Z79.899 Other long term (current) drug therapy; Y92.89 Other specified places as the place of occurrence of the external cause
CPT/HCPCS: 36415; 71045; 71275; 80048; 80053; 80307; 81000-TC; 81003; 82272; 82607; 82728; 82746; 83540-TC; 83550-TC; 83605; 83690-TC; 83735-TC; 83880; 84100-TC; 84484; 85007; 85025; 85027; 85044-TC; 85379; 85610-TC; 86359; 86360; 86480; 86635; 86886; 86900; 86901; 86920; 87040-TC; 87081; 87086; 87899; 93005; 96365; 96375; 99285; G0378; J1170; J1447; J2270; J2543; J3480; J7030; J7050; P9021; Q9967

== ENCOUNTER 2019-10-23 11:51 | Emergency (ER) | payer MEDICAID ==
[~2019-10-23] VITALS: Ht 162.6 cm; Wt 77.1 kg
[~2019-10-23 11:51] MED LIST: ALLO300T2 PO; FLUC200T PO; SULF1TAB48 PO
[2019-10-23 12:58] VITALS: BP_SYST 116
--- NOTE | 2019-10-23 13:05 | NUR ---
Patient triaged and placed in waiting room. VSS and patient appears in no acute distress at this time. Awaiting available bed, and MD notified of need for MSE.
== END 2019-10-23 14:30 | disposition left against medical advice (07) ==
LOC: SED 11:51
DX: K62.89 Other specified diseases of anus and rectum (principal); Z53.21 Procedure and treatment not carried out due to patient leaving prior to being seen by health care provider

== ENCOUNTER 2023-05-17 11:57 | Emergency (ER) | payer MEDICAID ==
[~2023-05-17] VITALS: Ht 165.1 cm; Wt 95.7 kg
[2023-05-17 12:00] VITALS: BP_SYST 137; PULSE 99; RESP 18; TEMP 97.7; O2SAT 98
[2023-05-17] MEDS ORDERED: NACL 0.9% 1,000 ML IV ONE ×2 (12:15→13:45)
[2023-05-17 12:52] LABS: BASOPHILS % (AUTO) 0.6 % (0.0-2.0); EOSINOPHILS # (AUTO) 0.1 K/uL (0.0-0.4); EOSINOPHILS % (AUTO) 1.9 % (0.0-4.0); HEMATOCRIT 40.9 % (36-48); HEMOGLOBIN 14.2 g/dL (12.0-16.0); LYMPHOCYTES # (AUTO) 1.9 K/uL (1.0-5.5); LYMPHOCYTES % (AUTO) 36.8 % (20.5-51.5); MEAN CORPUSCULAR HEMOGLOBIN 34 pg (27-31); MEAN CORPUSCULAR HGB CONC 35 % (32-36); MEAN CORPUSCULAR VOLUME 97 fL (79.0-98.0); MONOCYTES # (AUTO) 0.3 K/uL (0.0-1.0); MONOCYTES % (AUTO) 6.7 % (1.7-9.3); NEUTROPHILS # (AUTO) 2.7 K/uL (1.8-7.7); PLATELET COUNT (AUTO) 232 K/uL (130-430); RED BLOOD CELL COUNT(AUTO) 4.24 MIL/uL (4.2-6.2); RED CELL DISTRIBUTION WIDTH 13.7 % (9.0-15.0); WHITE BLOOD COUNT (AUTO) 5.1 K/uL (4.8-10.8)
[2023-05-17 12:57] LABS: POTASSIUM 3.6 mmol/L (3.5-5.1)
[2023-05-17 13:02] LABS: ALBUMIN 3.4 g/dL (3.4-4.8); BILIRUBIN,DIRECT 0.1 mg/dL (0.0-0.3); TOTAL BILIRUBIN 0.3 mg/dL (0.0-1.0); TOTAL PROTEIN, SERUM 7.2 g/dL (6.4-8.3)
[2023-05-17] MEDS ORDERED: SULFAMETHOXAZOLE /TRIMETHOPRIM 20 ML in D5W 500 ML IV SCH ×2 (13:45→16:00)
[2023-05-17 13:55] LABS: INFLUENZA TYPE B NEGATIVE (NEGATIVE)
[2023-05-17 14:00] LABS: INFLUENZA TYPE A Positive (NEGATIVE)
[2023-05-17] MEDS ORDERED: OSEL75CA PO (14:42)
[2023-05-17] MEDS ORDERED: ONDANSETRON HCL 4 MG/2 ML VIAL IVP ONE (14:45)
[2023-05-17 15:14] VITALS: BP_SYST 112; PULSE 20; RESP 20; TEMP 97; O2SAT 97
== END 2023-05-17 15:16 | disposition home or self-care (01) ==
LOC: SED 11:57
DX: J10.1 Influenza due to other identified influenza virus with other respiratory manifestations (principal); R50.9 Fever, unspecified; R05.9 Cough, unspecified; K92.0 Hematemesis; Z79.899 Other long term (current) drug therapy; Z20.822 Contact with and (suspected) exposure to COVID-19
CPT/HCPCS: 99284; 96360; 71045; 87426; 80076; 80048; 85025; 87040; 36415; 83605; 87804 ×2; J7030

== ENCOUNTER 2023-05-18 23:10 | Emergency (ER) | payer MEDICAID ==
[~2023-05-18] VITALS: Ht 165.1 cm; Wt 95.7 kg
[2023-05-18 23:10] VITALS: BP_SYST 148; PULSE 80; RESP 16; TEMP 97.2; O2SAT 97
[~2023-05-18 23:10] MED LIST changes: +OSEL75CA PO
[2023-05-18] MEDS ORDERED: NACL 0.9% 1,000 ML IV ONE (23:30)
[2023-05-18] MEDS ORDERED: ONDANSETRON HCL 4 MG/2 ML VIAL IVP ONE (23:30)
[2023-05-19 00:03] LABS: BASOPHILS % (AUTO) 0.4 % (0.0-2.0); EOSINOPHILS # (AUTO) 0.2 K/uL (0.0-0.4); EOSINOPHILS % (AUTO) 3.6 % (0.0-4.0); HEMATOCRIT 37.2 % (36-48); HEMOGLOBIN 12.7 g/dL (12.0-16.0); LYMPHOCYTES # (AUTO) 2.6 K/uL (1.0-5.5); LYMPHOCYTES % (AUTO) 49.3 % (20.5-51.5); MEAN CORPUSCULAR HEMOGLOBIN 33 pg (27-31); MEAN CORPUSCULAR HGB CONC 34 % (32-36); MEAN CORPUSCULAR VOLUME 96 fL (79.0-98.0); MONOCYTES # (AUTO) 0.3 K/uL (0.0-1.0); NEUTROPHILS # (AUTO) 2.1 K/uL (1.8-7.7); NEUTROPHILS % (AUTO) 40.7 % (40.0-70.0); PLATELET COUNT (AUTO) 218 K/uL (130-430); RED BLOOD CELL COUNT(AUTO) 3.87 MIL/uL (4.2-6.2); RED CELL DISTRIBUTION WIDTH 13.5 % (9.0-15.0); WHITE BLOOD COUNT (AUTO) 5.2 K/uL (4.8-10.8)
[2023-05-19 00:19] LABS: CALCIUM 8.7 mg/dL (8.4-11.0); CREATININE 0.91 mg/dL (0.55-1.30); POTASSIUM 3.9 mmol/L (3.5-5.1)
[2023-05-19 00:24] LABS: ALBUMIN 3.2 g/dL (3.4-4.8); BILIRUBIN,DIRECT 0.1 mg/dL (0.0-0.3); TOTAL BILIRUBIN 0.3 mg/dL (0.0-1.0); TOTAL PROTEIN, SERUM 6.6 g/dL (6.4-8.3)
[2023-05-19] MEDS ORDERED: methylPREDNISolone SOD SUCC/PF 62.5 MG/ML VIAL IVP ONE (00:30)
[2023-05-19] MEDS ORDERED: cefTRIAXone 1 GM IVPB PREMIX 50 ML IV ONE (00:30)
[2023-05-19] MEDS ORDERED: BENZ100C92 PO (01:05)
[2023-05-19] MEDS ORDERED: LEVO-62 PO (01:05)
[2023-05-19] MEDS ORDERED: MED4 PO (01:05)
[2023-05-19 01:10] VITALS: BP_SYST 125; PULSE 68; RESP 16; TEMP 97.3; O2SAT 98
[2023-05-19 01:20] LABS: BILIRUBIN,URINE NEGATIVE (NEGATIVE); BLOOD, URINE NEGATIVE (NEGATIVE); CLARITY/URINE CLEAR (CLEAR); COLOR,URINE YELLOW (YELLOW); GLUCOSE,URINE NEGATIVE (NEGATIVE); KETONES,URINE NEGATIVE (NEGATIVE); LEUKOCYTE ESTERASE ,URINE NEGATIVE (NEGATIVE); NITRITE, URINE NEGATIVE (NEGATIVE); PROTEIN URINE NEGATIVE (NEGATIVE); UROBILINOGEN,URINE 0.2 (0.2-1.0)
== END 2023-05-19 01:10 | disposition home or self-care (01) ==
LOC: SED 23:10
DX: J20.9 Acute bronchitis, unspecified (principal); J45.909 Unspecified asthma, uncomplicated; R05.9 Cough, unspecified; R09.81 Nasal congestion; Z79.899 Other long term (current) drug therapy
CPT/HCPCS: 99285; 71045; 80076; 80048; 81001; 85025; 87040; 36415; 93005; 83605; 81003; 96365; 96375; J0696; J2405; J2930

== ENCOUNTER 2023-05-19 14:36 | Emergency (ER) | payer MEDICAID ==
[~2023-05-19] VITALS: Ht 165.1 cm; Wt 95.7 kg
[~2023-05-19 14:36] MED LIST changes: +BENZ100C92 PO; +LEVO-62 PO; +MED4 PO
[2023-05-19 15:32] VITALS: BP_SYST 140; PULSE 80; RESP 18; TEMP 97; O2SAT 96
[2023-05-19 17:51] LABS: BASOPHILS % (AUTO) 0.2 % (0.0-2.0); HEMATOCRIT 39.6 % (36-48); HEMOGLOBIN 13.7 g/dL (12.0-16.0); LYMPHOCYTES # (AUTO) 1.4 K/uL (1.0-5.5); LYMPHOCYTES % (AUTO) 34.4 % (20.5-51.5); MEAN CORPUSCULAR HEMOGLOBIN 33 pg (27-31); MEAN CORPUSCULAR HGB CONC 34 % (32-36); MEAN CORPUSCULAR VOLUME 96 fL (79.0-98.0); MONOCYTES # (AUTO) 0.2 K/uL (0.0-1.0); MONOCYTES % (AUTO) 5.2 % (1.7-9.3); NEUTROPHILS # (AUTO) 2.5 K/uL (1.8-7.7); NEUTROPHILS % (AUTO) 60.2 % (40.0-70.0); PLATELET COUNT (AUTO) 263 K/uL (130-430); RED BLOOD CELL COUNT(AUTO) 4.14 MIL/uL (4.2-6.2); RED CELL DISTRIBUTION WIDTH 13.6 % (9.0-15.0); WHITE BLOOD COUNT (AUTO) 4.2 K/uL (4.8-10.8)
[2023-05-19 18:05] LABS: CALCIUM 8.7 mg/dL (8.4-11.0); CREATININE 0.91 mg/dL (0.55-1.30); POTASSIUM 3.5 mmol/L (3.5-5.1)
[2023-05-19 20:08] VITALS: BP_SYST 119; PULSE 63; RESP 16; TEMP 97.3; O2SAT 95
== END 2023-05-19 20:08 | disposition home or self-care (01) ==
LOC: SED 14:36
DX: A15.0 Tuberculosis of lung (principal); R04.2 Hemoptysis; R05.9 Cough, unspecified; R06.02 Shortness of breath; Z85.72 Personal history of non-Hodgkin lymphomas; Z79.899 Other long term (current) drug therapy
CPT/HCPCS: 99285; 71260; 80048; 85025; 36415; 76376; Q9967